=== PATIENT | female | born 1960 | race Caucasian/White ===

== ENCOUNTER → 2016-10-28 | Outpatient (CLI) | payer MEDICARE, MEDICAID ==
[~2016-10-28] MED LIST: 'TENORMIN50 MG PO; AMBIEN10 M1 PO; ASPIRIN CHILDRE81 MG PO; ATARAX25 MG PO; ATIVAN0.5 MG PO; ATIVAN1 MG PO; BENADRYL25 M2 PO; CATAFLAM50 MG PO; CEFDINIR300 MG PO; CEPHALEXIN500 M1 PO; CIPRO250 MG PO; CIPROFLOXACIN500 MG PO; CLINDAMYCIN HC300 MG PO; CLINDAMYCIN150 MG PO; DONNATAL1 CA1 PO; FLONASE 0.05% 121 EA NAS; FLUTICASON0.05 MG/Ac NS; GLIPIZIDE5 MG PO; HYDROCODONE BIT1 T11 PO; IBU800 MG PO; INVOKANA100 M1 PO; KENALOG0.1% TP; LAMICTAL200 MG PO; LANTUS100 U/ML SC; LEVORPHANOL TART2 MG PO; LIDEX0.05% T; LIPITOR40 MG PO; LYRICA150 MG PO; MAGNESIUM OXID400 MG PO; MEDROL DOSEPAK4 MG PO; METFORMIN HCL1000 MG PO; METOPROLOL SUCC50 M2 PO; METOPROLOL TART50 M1 PO; MOTRIN600 MG PO; MOTRIN800 MG PO; NAPROSYN500 MG PO; NEXIUM40 MG PO; NITROSTAT0.4 MG SL; NORFLEX100 MG PO; NOVOLOG 70/30 M10 ML SC; OPANA ER15 MG PO; OPANA ER20 M1 PO; OXYCODONE HCL5 MG PO; PERCOCET 325 MG1 TA2 PO; PERCOCET 325 MG1 TA4 PO; PERCOCET 325 MG1 TA7 PO; PRAVACHOL40 MG PO; PREDNICOT20 MG PO; PREDNISONE10 MG PO; PROPAFENONE HC150 MG PO; PROTONIX40 MG PO; RANITIDINE300 MG PO; REGLAN10 MG PO; REMERON45 M1 PO; SIMVASTATIN40 MG PO; SINGULAIR4 MG PO; SOMA350 MG PO; TRULICITY1.5 MG/0.5 SC; VALIUM5 MG PO; VENLAFAXINE HY150 M2 PO; VENLAFAXINE150 MG PO; ZANAFLEX4 MG PO; ZESTRIL5 MG PO; ZOLOFT100 MG PO; Zofran4 MG PO
[2016-10-28 11:08] LABS: BASO # 0.1 10*3/uL (0.0-0.1); BASO % 1.1 % (0.0-1.0); EOS # 0.5 10*3/uL (0.0-0.4); EOS % 7.3 % (1.0-4.0); HEMATOCRIT 32.9 % (37.0-47.0); HEMOGLOBIN 9.8 g/dl (12.0-16.0); LYMPH # 1.5 10*3/uL (1.3-4.4); LYMPH % 23.1 % (27.0-41.0); MEAN CELL VOLUME 74.9 fl (81.0-99.0); MEAN CORPUSCULAR HGB 22.3 pg (27.0-31.0); MEAN CORPUSCULAR HGB CONC 29.8 g/dl (33.0-37.0); MEAN PLATELET VOLUME 9.5 fl (9.6-12.3); MONO # 0.6 10*3/uL (0.1-1.0); MONO % 9.3 % (3.0-9.0); NEUT # 3.9 10*3/uL (2.3-7.9); NEUT % 58.9 % (47.0-73.0); PLATELET COUNT AUTOMATED 318 10*3/uL (130-400); RED BLOOD COUNT 4.39 10*6/uL (4.10-5.10); RED CELL DISTRI WIDTH 16.6 % (0-14.5); WHITE BLOOD COUNT 6.6 10*3/uL (4.8-10.8)
[2016-10-28 11:32] LABS: IRON 50 ug/dL (50-170); IRON SATURATION 10 %; UIBC 421 ug/dL (110-365)
== END | disposition home or self-care (01) ==
LOC: LAB 10:42
PROVIDERS: Internal Medicine
DX: D50.9 Iron deficiency anemia, unspecified (principal)

== ENCOUNTER 2017-01-05 20:14 | Emergency (ER) | payer MEDICARE, MEDICAID ==
[~2017-01-05] VITALS: Ht 160 cm; Wt 95.3 kg
[2017-01-05] MEDS ORDERED: ASPIRIN CHEWABL81 MG PO (20:20)
[2017-01-05] MEDS ORDERED: ZANAFLEX CAPSULE4 MG PO (20:23)
[2017-01-05] MEDS ORDERED: NAPROSYN500 MG PO (21:34)
[2017-01-05] MEDS ORDERED: CYCLOBENZAPRINE5 M3 PO (21:34)
== END 2017-01-05 21:41 | disposition home or self-care (01) ==
LOC: ED 20:14
DX: S39.012A Strain of muscle, fascia and tendon of lower back, initial encounter (principal); S80.02XA Contusion of left knee, initial encounter; Z88.2 Allergy status to sulfonamides; Z88.1 Allergy status to other antibiotic agents; Z88.8 Allergy status to other drugs, medicaments and biological substances; Z79.82 Long term (current) use of aspirin; Z79.899 Other long term (current) drug therapy; W18.39XA Other fall on same level, initial encounter; Y93.01 Activity, walking, marching and hiking; Y92.099 Unspecified place in other non-institutional residence as the place of occurrence of the external cause; Y99.8 Other external cause status

== ENCOUNTER → 2017-05-18 | Outpatient (CLI) | payer MEDICARE, MEDICAID ==
[~2017-05-18] MED LIST changes: +ASPIRIN CHEWABL81 MG PO; +CYCLOBENZAPRINE5 M3 PO; +ZANAFLEX CAPSULE4 MG PO
[2017-05-18 11:43] LABS: BILIRUBIN NEGATIVE (NEGATIVE); BLOOD TRACE-LYSED (NEGATIVE); CLARITY CLEAR (CLEAR); COLOR YELLOW (YELLOW); GLUCOSE 3+ (NEGATIVE); KETONE NEGATIVE (NEGATIVE); LEUKO ESTERASE NEGATIVE (NEGATIVE); NITRITE NEGATIVE (NEGATIVE); PH 5.5 (5.0-9.0); SPECIFIC GRAVITY 1.015 (1.005-1.030); UROBILINOGEN 0.2 E.U./dl (0.2-1.0)
[2017-05-18 11:52] LABS: BACTERIA TRACE
[2017-05-18 12:08] LABS: ALBUMIN 3.4 gm/dl (3.1-4.5); ALKALINE PHOSPHATASE 113 U/L (45-117); BILIRUBIN, DIRECT < 0.1 mg/dL (0.0-0.2); BUN 23 mg/dl (7-24); CHLORIDE 109 mmol/L (98-107); CHOLESTEROL 139 mg/dL (<200); CREATININE 1.19 mg/dL (0.55-1.02); HDL CHOLESTEROL 39 mg/dl (40-60); LDL CHOLESTEROL 25 mg/dL (9-159); POTASSIUM 3.7 mmol/L (3.5-5.1); SGOT/AST 31 IU/L (3-35); SGPT/ALT 24 U/L (12-78); SODIUM 144 mmol/L (136-145); TOTAL PROTEIN 7.4 gm/dL (6.4-8.2); TRIGLYCERIDES 377 mg/dl (<150); VLDL CHOLESTEROL 75 mg/dL (6-40)
[2017-05-18 12:40] LABS: VITAMIN D, 25-HYDROXY 36.7 ng/mL (30-100)
== END | disposition home or self-care (01) ==
LOC: LAB 11:19
PROVIDERS: Internal Medicine
DX: I10 Essential (primary) hypertension (principal); E11.40 Type 2 diabetes mellitus with diabetic neuropathy, unspecified; E11.65 Type 2 diabetes mellitus with hyperglycemia; E78.5 Hyperlipidemia, unspecified; E55.9 Vitamin D deficiency, unspecified